=== PATIENT | male | born 1995 | race African-American/Black ===

== ENCOUNTER 2017-09-18 01:51 | Emergency (ER) | payer OTHER ==
[~2017-09-18] VITALS: Ht 182.9 cm; Wt 108.9 kg
[~2017-09-18 01:51] MED LIST: FLEXERIL PO; HYDROCODONE-AP1 EAC6 PO; IBUPROFEN 800800 M1 PO
[2017-09-18] MEDS ORDERED: HYDROCODONE-AP1 EAC6 PO (02:39)
[2017-09-18] MEDS ORDERED: PENICILLIN VK250 MG PO (02:39)
[2017-09-18 02:54] VITALS: BP 146/92
== END 2017-09-18 02:54 | disposition home or self-care (01) ==
LOC: M.ERS 01:51
DX: K08.89 Other specified disorders of teeth and supporting structures (principal)

== ENCOUNTER 2017-09-20 05:00 | Emergency (ER) | payer OTHER ==
[~2017-09-20] VITALS: Ht 182.9 cm; Wt 108.9 kg
[~2017-09-20 05:00] MED LIST changes: +PENICILLIN VK250 MG PO
[2017-09-20] MEDS ORDERED: PERCOCET 7.5-31 EACH PO (05:14)
[2017-09-20] MEDS ORDERED: CLEOCIN HCL150 MG PO (05:14)
[2017-09-20 05:23] VITALS: BP 161/96
== END 2017-09-20 05:24 | disposition home or self-care (01) ==
LOC: M.ERS 05:00
DX: K04.7 Periapical abscess without sinus (principal)

== ENCOUNTER 2018-04-08 21:02 | Emergency (ER) | payer OTHER ==
[~2018-04-08] VITALS: Ht 182.9 cm; Wt 108.9 kg
[~2018-04-08 21:02] MED LIST changes: +CLEOCIN HCL150 MG PO; +PERCOCET 7.5-31 EACH PO
[2018-04-08 22:12] LABS: URINE BILIRUBIN NEGATIVE (Negative); URINE BLOOD NEGATIVE (Negative); URINE CLARITY CLEAR; URINE COLOR YELLOW; URINE GLUCOSE-RANDOM NEGATIVE (Negative); URINE KETONES NEGATIVE (Negative); URINE LEUKOCYTES-REFLEX NEGATIVE (Negative); URINE NITRITE-REFLEX NEGATIVE (Negative); URINE PROTEIN NEGATIVE (Negative); URINE SPECIFIC GRAVITY 1.015 (1.005-1.030)
[2018-04-08 22:14] LABS: ABSOLUTE BASOPHILS 0.1 thou/uL (0.0-0.2); ABSOLUTE EOSINOPHILS 0.1 thou/uL (0.0-0.7); ABSOLUTE LYMPHOCYTES 2.2 thou/uL (0.8-5.3); ABSOLUTE MONOCYTES 0.4 thou/uL (0.0-1.2); ABSOLUTE NEUTROPHILS 2.2 thou/uL (1.6-8.1); BASOPHILS 1.2 %; EOSINOPHILS 1.9 %; HEMATOCRIT 42.1 % (42.0-52.0); HEMOGLOBIN 14.1 gm/dL (14.0-18.0); LYMPHOCYTES 44.8 %; MCH 28.3 pg (26.0-34.0); MCHC 33.5 g/dL (28.0-37.0); MCV 84.4 fL (80.0-100.0); MONOCYTES 7.8 %; MPV 8.6 fl. (7.2-11.1); NUCLEATED RBCS 0 /100WBC; PLATELET COUNT* 267 thou/uL (150-400); POLYS 44.3 %; RBC 4.99 mil/uL (4.50-6.00); RDW-CV 13.6 % (10.5-14.5)
[2018-04-08 22:23] LABS: CALCIUM 8.6 mg/dL (8.5-10.1); CREATININE 1.1 mg/dL (0.6-1.3); POTASSIUM 3.8 mmol/L (3.5-5.1)
[2018-04-08 22:27] LABS: TOTAL BILIRUBIN 0.8 mg/dL (<0.1-1.0); TOTAL PROTEIN 7.8 g/dL (6.4-8.2)
[2018-04-08 22:48] VITALS: BP 133/76
== END 2018-04-08 22:49 | disposition home or self-care (01) ==
LOC: M.ERS 21:02
PROVIDERS: Nurse Practitioner Family
DX: R51 Headache (principal); R03.0 Elevated blood-pressure reading, without diagnosis of hypertension; R42 Dizziness and giddiness